=== PATIENT | male | born 1940 | race African-American/Black ===

== ENCOUNTER 2017-04-09 17:54 | Inpatient (IN) | payer OTHER ==
[~2017-04-09] VITALS: Ht 167.6 cm; Wt 92.0 kg
[~2017-04-09 17:54] MED LIST: ASPI-664 PO; ASPI325T32 PO; METO25TA4 PO; OXYC-183 PO; SIMV40TA3 PO; VALS160T20 PO; glipizide; qpap
[2017-04-09] MEDS ORDERED: ASPIRIN 325 MG TAB PO STA (18:28)
[2017-04-09 18:58] VITALS: TEMP 98.1
--- NOTE | 2017-04-09 19:03 | RADRPT ---
PROCEDURE: XR Chest. CLINICAL INDICATION: Chest Pain. TECHNIQUE: Single frontal view of the chest was obtained COMPARISON: Chest radiograph dated February 14, 2009. FINDINGS: Median sternotomy wires are present. The heart is within the upper limits of normal in size. Aortic calcifications are present. The lungs are clear with no focal consolidations, pleural effusions, or pneumothorax. Degenerative changes of the spine and shoulder joints are present. IMPRESSION: 1. No acute cardiopulmonary disease. RPTAT:AAJJ Physician Graeme Date Time Electronically viewed and signed by Nan Brush Physician on 04/09/2017 19:03 QL/
[2017-04-09] MEDS ORDERED: GABA100C14 PO (19:24)
[2017-04-09] MEDS ORDERED: GLIM4TAB PO (19:25)
[2017-04-09] MEDS ORDERED: LOSA50TA6 PO (19:25)
[2017-04-09] MEDS ORDERED: MELO-216 PO (19:25)
[2017-04-09] MEDS ORDERED: METO-335 PO (19:26)
[2017-04-09] MEDS ORDERED: INSU300I SQ (19:27)
[2017-04-09] MEDS ORDERED: LINA5TAB PO (19:27)
[2017-04-09] MEDS ORDERED: ALBUTEROL 0.083% (NEB) 2.5 MG/3 ML AMP NEB STA (19:48)
[2017-04-09] MEDS ORDERED: IPRATROPIUM (NEB) 0.5 MG/2.5 ML AMP NEB STA (19:48)
--- NOTE | 2017-04-09 20:13 | ERD ---
ER Documentation Chief Complaint Chief Complaint SHORTNESS OF BREATH, NO COUGH, HX OF CABG, NO CP HPI This is a 76-year-old male with a history of hypertension, CAD, previous CABG, hyperlipidemia, previous pulmonary embolism and diabetes who presents to the ER for evaluation of shortness of breath and chest pain. He states that his pain short of breath over the past 2 months however he recently started to have chest pain which is intermittent and substernal with no radiation. He denies any relieving factors for his pain and does state that the exertion and laying flat exacerbates his pain. The patient came to the emergency room today for evaluation of his symptoms ROS All systems reviewed and are negative except as per history of present illness. Medications Home Meds Reported Medications Insulin Glargine,Hum.rec.anlog ([place]) 300 Unit/1 Ml Insuln.pen, 20 UNIT SQ DAILY 04/09/17 Linagliptin (TRADJENTA) 5 Mg Tablet, 5 MG PO DAILY, TAB 04/09/17 Metoprolol Succinate* (Toprol XL*) 25 Mg Tab.sr.24h, 25 MG PO DAILY, #30 TAB 04/09/17 Meloxicam* (Meloxicam*) 7.5 Mg Tablet, 7.5 MG PO DAILY, #30 TAB 04/09/17 Glimepiride* (Glimepiride*) 4 Mg Tablet, 4 MG PO WITH BREAKFAST, TAB 04/09/17 Losartan Potassium* (Losartan Potassium*) 50 Mg Tablet, 50 MG PO DAILY, TAB 04/09/17 Gabapentin* (Gabapentin*) 100 Mg Capsule, 100 MG PO BID, #90 CAP 04/09/17 Aspirin* (Aspirin* EC) 81 Mg Tablet.dr, 81 MG PO DAILY 06/30/11 Discontinued Reported Medications Metoprolol Tartrate* (Lopressor*) 25 Mg Tablet, 12.5 MG PO Q12 08/06/11 Aspirin* (Aspirin* EC) 325 Mg Tablet.dr, 325 MG PO DAILY 08/06/11 Simvastatin (Simvastatin) 40 Mg Tablet, 40 MG PO HS 08/06/11 Oxycodone Hcl-Acetaminophen* (Oxycodone Hcl-Acetaminophen*) 1 Tab Tablet, 1 TAB PO Q6 Y 08/06/11 [glipizide] No Conflict Check, 5 MG DAILY 06/30/11 [qpap] No Conflict Check, 500 MG TID 06/30/11 Valsartan* (Diovan*) 160 Mg Tablet, 160 MG PO DAILY 06/30/11 Allergies Allergies: Coded Allergies: No Known Allergy (Verified , 08/04/11) PMhx/Soc History of Surgery: Yes Anesthesia Reaction: No Hx Neurological Disorder: No Hx Respiratory Disorders: No Hx Cardiac Disorders: Yes (ND X3,STENT 2009,HTN) Hx Psychiatric Problems: No Hx Alcohol Use: Yes Hx Substance Use: No Hx Tobacco Use: Yes Smoking Status: Former smoker Physical Exam Vitals Vital Signs Date Time Temp Pulse Resp B/P Pulse Ox O2 Delivery O2 Flow Rate FiO2 04/09/17 20:03 58 18 100 Nasal Cannula 2.0 04/09/17 20:02 100 2.0 27 04/09/17 18:59 Nasal Cannula 2 04/09/17 18:05 98.1 71 18 112/65 96 Physical Exam INITIAL VITAL SIGNS: Reviewed by me GENERAL: The patient is well developed and appropriate for usual state of health in no apparent distress HEENT: Pupils equal, round, and reactive to light. EOMI. There is no scleral icterus. NECK: C-spine is soft and supple, there is no meningismus. There is no cervical lymphadenopathy. LUNGS: Clear to auscultation bilaterally. There are no rales, wheezes or rhonchi. HEART: Regular rate and rhythm, no murmurs, clicks, rubs or gallops. ABDOMEN: Soft, non-tender, non-distended. There are bowel sounds in all four quadrants. No rebound or guarding. EXTREMITIES: There is no peripheral cyanosis or edema. No focal swelling or erythema. NEUROLOGICAL: The patient moves all four extremities with 5/5 strength. Cranial nerves II - XII are intact. Normal gait. Alert and oriented SKIN: There is no apparent rash or petechiae. HEME/LYMPHATIC: There is no evidence of excessive bruising or lymphedema. PSYCHIATRIC: The patient does not appear anxious or depressed. Result Diagram: 04/09/17184404/09/175 Results 24 hrs Laboratory Tests Test 04/09/17 18:45 White Blood Count 6.110^3/ul Red Blood Count 4.2410^6/ul Hemoglobin 13.2g/dl Hematocrit 37.9% Mean Corpuscular Volume 89.4fl Mean Corpuscular Hemoglobin 31.1pg Mean Corpuscular Hemoglobin Concent 34.8g/dl Red Cell Distribution Width 13.8% Platelet Count 00388^3/UL Mean Platelet Volume 10.0fl Neutrophils % 63.5% Lymphocytes % 25.8% Monocytes % 7.8% Eosinophils % 2.0% Basophils % 0.7% Nucleated Red Blood Cells % 0.0/100WBC Neutrophils # 3.910^3/ul Lymphocytes # 1.610^3/ul Monocytes # 0.510^3/ul Eosinophils # 0.110^3/ul Basophils # 0.010^3/ul Nucleated Red Blood Cells # 0.010^3/ul Prothrombin Time 14.0Sec Prothrombin Time Ratio 1.1 INR International Normalized Ratio 1.08 Activated Partial Thromboplast Time 47.0Sec Sodium Level 146mmol/L Potassium Level 4.1mmol/L Chloride Level 109mmol/L Carbon Dioxide Level 24mmol/L Anion Gap 17 Blood Urea Nitrogen 26mg/dl Creatinine 1.37mg/dl Glucose Level 162mg/dl Calcium Level 9.5mg/dl Troponin I < 0.012ng/ml B-Type Natriuretic Peptide 398PG/ML Current Medications Medications (Trade) Dose Ordered Sig/Armin Route PRN Reason Start Time Stop Time Status Last Admin Dose Admin Aspirin (Aspirin) 325 mg ONCE STAT PO 04/09/17 18:28 04/09/17 18:29 DC 04/09/17 18:44 Albuterol (Proventil 0.083% (Neb)) 5 mg ONCE STAT NEB 04/09/17 19:48 04/09/17 19:49 DC 04/09/17 20:03 Ipratropium [place] (Atrovent 0.02% (Neb)) 0.5 mg ONCE STAT NEB 04/09/17 19:48 04/09/17 19:49 DC 04/09/17 20:03 Ondansetron HCl (Zofran Inj) 4 mg ER BRIDGE PRN IV NAUSEA AND/OR VOMITING 04/09/17 20:30 04/10/17 20:29 Acetaminophen (Tylenol Tab) 650 mg ER BRIDGE PRN PO MILD PAIN/FEVER 04/09/17 20:30 04/10/17 20:29 Procedures/MDM EKG: Rate/Rhythm: [Normal Sinus Rhythm] QRS, ST, T-waves: [No changes consistent w/ acute ischemia] Impression: [No evidence of ischemia or arrhythmia] EKG: Rate/Rhythm: [Normal Sinus Rhythm] QRS, ST, T-waves: [No changes consistent w/ acute ischemia] Impression: [No evidence of ischemia or arrhythmia] Chest X-ray 1V Interpreted by me: Soft Tissue: No acute abnormalities Bones: No acute abnormalities Mediastinum/Cardiac Silhouette/Lungs: [No acute abnormalities] This is a 76-year-old male who presents to the ER for evaluation of chest pain and shortness of breath. This patient has multiple risk factors including previous MIs, and CABG. His first troponin is negative, his first EKG is nonischemic and repeat EKG does not show any evolving changes. This patient will be placed in for admission at this time under the care of [place] physician Dr. Posadas. He is hemodynamically stable at this point however will be placed on the telemetry floor. Smoking Cessation Therapy: Pt. was lectured for greater than 3 minutes on the health risks of continued smoking and the benefits of cessation. Departure Diagnosis: Primary Impression: Chest pain Additional Impressions: Shortness of breath Renal insufficiency Condition: Fair JEOVANY REYES DO Apr 09, 2017 20:13
[2017-04-09] MEDS ORDERED: NACL 0.9% 3 ML SYG IV SCH (20:30)
[2017-04-09] MEDS ORDERED: DOCUSATE SODIUM 100 MG CAP PO PRN (20:30)
[2017-04-09] MEDS ORDERED: ACETAMINOPHEN 325 MG TAB PO PRN ×2 (20:30)
[2017-04-09] MEDS ORDERED: ZOLPIDEM 5 MG TAB PO PRN (20:30)
[2017-04-09] MEDS ORDERED: MAGNESIUM HYDROXIDE 30ML CUP PO PRN (20:30)
[2017-04-09] MEDS ORDERED: NITROGLYCERIN (SL) 0.4 MG TAB SL PRN (20:30)
[2017-04-09] MEDS ORDERED: ONDANSETRON 4 MG INJ IV PRN ×2 (20:30)
[2017-04-09] MEDS ORDERED: morphine 2 MG INJ IV PRN (20:30)
[2017-04-09] MEDS ORDERED: BISACODYL 10 MG SUPP PR PRN (20:30)
[2017-04-09] MEDS ORDERED: GLUCAGON 1 MG INJ IM PRN (21:00)
[2017-04-09] MEDS ORDERED: SOD CHLORIDE 0.9% 1,000 ML IV SCH (21:00)
[2017-04-09] MEDS: INSULIN ASPART [NOVOLOG] 3 ML PEN SC SCH (21:00)
[2017-04-09] MEDS ORDERED: GLUCOSE GEL 15 GRAM TUBE PO PRN ×2 (21:00)
[2017-04-09] MEDS ORDERED: DEXTROSE 50% 50 ML SYRINGE IV PRN ×2 (21:00)
[2017-04-09] MEDS ORDERED: GLUCOSE GEL 15 GRAM TUBE BUCCAL PRN (21:00)
[2017-04-09] MEDS ORDERED: SOD CHLORIDE 0.9% 100 ML ONE (21:27)
[2017-04-09] MEDS ORDERED: IODIXANOL LOCM 50 ML BTL ONE (21:27)
[2017-04-09] MEDS ORDERED: IODIXANOL LOCM 100 ML BTL ONE (21:27)
[2017-04-09] MEDS ORDERED: PYRI50CA PO (21:52)
--- NOTE | 2017-04-09 22:47 | RADRPT ---
PROCEDURE: CT angiogram of the chest with contrast. CLINICAL INDICATION: Chest pain. TECHNIQUE: CT angiogram of the chest was obtained using a multi-detector high-resolution CT. Con tiguous axial images were obtained during the dynamic injection of 100 cc of Visipaque 320 intraveno us contrast. Coronal and sagittal reformatted images were obtained. 3-D reformatted images were al so obtained. Images were reviewed on a PACS workstation. One or more of the following dose reduction techniques were used: - Automated exposure control. - Adjustment of the mA and/or kV according to patient size. - Use of iterative reconstruction technique. Exam CTD/vol = 17.68 mGy. Total exam DLP = 659.47 mGy-cm. COMPARISON: None. FINDINGS: The main pulmonary artery followed to the segmental divisions are well opacified. There is no filli ng defect or evidence of pulmonary embolism. The heart is normal in size with coronary artery calci fications. There is no pericardial thickening or effusion. The aorta is of normal course and calib er with scattered atherosclerotic calcifications. There is no evidence of aortic aneurysm or dissect ion. Mediasternotomy wires are present. The visualized thyroid is unremarkable. There are no enlarged a xillary lymph nodes. There are no enlarged mediastinal or hilar lymph nodes by CT criteria. There is a subpleural density within the left lower lobe (image 59) measuring 15 x 10 mm. There is no pleu ral effusion. There is mild bibasilar atelectasis. The central tracheobronchial tree is within norm al limits. Limited evaluation of the upper abdomen is unremarkable. IMPRESSION: No evidence of pulmonary embolism or aortic dissection. Vascular calcifications reflective of atherosclerosis. Left lower lobe 15 x 10 mm subpleural density could be infectious/inflammatory; however, follow-up b y Fleischner guidelines is recommended. Mild bibasilar atelectasis. .Noman Wilson MD, MD Date Time Electronically viewed and signed by .Noman Wilson MD, MD on 04/09/2017 22:47 .T/
[2017-04-09 23:48] VITALS: Ht 167.6 cm; Wt 92.0 kg
[2017-04-10] VITALS (7 sets, daily range): BP systolic 112–119; BP diastolic 57–72; PULSE 47–54; RESP 16–17
[2017-04-10] MEDS: FAMOTIDINE 20 MG TAB PO SCH ×2 (00:25→08:45)
[2017-04-10] MEDS: GABAPENTIN 100 MG CAP PO SCH ×2 (00:25→08:46)
[2017-04-10] MEDS ORDERED: ACCU-CHEK XX SCH (02:00)
[2017-04-10] MEDS ORDERED: INSULIN GLARGINE [LANtus] 3 ML PEN SC SCH (08:00)
[2017-04-10] MEDS: INSULIN ASPART [NOVOLOG] 3 ML PEN SC SCH ×2 (08:47→12:49)
[2017-04-10] MEDS ORDERED: METOPROLOL (XL) 25 MG TAB PO SCH (09:00)
[2017-04-10] MEDS ORDERED: LINAGLIPTIN 5 MG TABLET PO SCH (09:00)
[2017-04-10] MEDS ORDERED: ASPIRIN 81 MG TAB PO SCH (09:00)
[2017-04-10] MEDS ORDERED: LOSARTAN 50 MG TAB PO SCH (09:00)
[2017-04-10] MEDS ORDERED: ENOXAPARIN 40 MG/0.4 ML SYG SC SCH (10:18)
--- NOTE | 2017-04-10 10:29 | HP ---
Date/Time of Note Date/Time of Note DATE: 04/10/17 TIME: 10:00 Assessment/Plan VTE Prophylaxis VTE Prophylaxis Intervention: LMWH Lines/Catheters IV Catheter Type (from Nrs): Saline Lock Assessment/Plan Assessment/Plan 76-year-old male with: 1. Dyspnea, chest discomfort left-sided, saturation wnl and in the upper 90s on room air, symptoms not related to exertion but describing orthopnea. 2D echocardiogram was ordered here and done this morning, will follow up on reading. Patient reports that he did have a nuclear stress test at his electronic parts salesperson's office in February 2017, will get records. Cardiac enzymes negative 3, EKG and telemetry reading within normal. CTA chest with no pulmonary embolus or dissection. Follow-up on fasting lipid panel. No further symptoms currently. We will discuss with cardiology, for now no further workup ordered. 2. Diabetes mellitus: A1c of 8.5, continue current medications. Diabetic diet. 4. Diabetic neuropathy: Continue gabapentin. 3. Hypertension: Continue current medication, given heart rates in the upper 40s at night, will discuss re-dosing of beta-blockers, for today Toprol-XL has been held. 5. Reported urinary incontinence since prostate surgery, patient is self treating with medical, edible marijuana per his report Prophylaxis: Pepcid for GI prophylaxis, Lovenox for DVT prophylaxis Disposition: Follow-up cardiology recommendations, hopefully discharge planning today if no further studies or procedures. HPI/ROS Admit Date/Time Admit Date/Time Apr 09, 2017 at 20:08 Hx of Present Illness Chief complaint: Shortness of breath, chest discomfort History of presenting illness: This is a 76-year-old male with history of coronary artery disease, status post coronary artery bypass surgery in 2011, diabetes mellitus, hyperlipidemia, diabetic neuropathy, hypertension who is followed as an outpatient by Dr. Vasquez for cardiology, presented at [facility] with complaints of shortness of breath and left-sided chest pressure. Patient reports that he was at [facility] last week with similar complaints, he was worked up in the emergency department apparently and the discharge the next day. He saw his electronic parts salesperson Dr. Vasquez in the office yesterday as a follow-up, he reports that he was given a medication that may be Lasix as they were concerned for pulmonary edema. Patient already had a stress test and also an echocardiogram apparently this past February Dr. Vasquez's office, he was not told that there was any acute findings. He is a former tobacco user, heavy smoker, he quit in 2011. He denies any nausea, vomiting, diaphoresis. He denies any fevers, cough, chills. He denies any lower extremity edema. He reports that the dyspneic episodes seem to happen randomly, he has had episodes with exertion, with rest, while sleeping. He describes symptoms similar to orthopnea. This has been going on for the past 5 months but increasing in frequency lately. He is left-sided chest pressure seems to be also ranging from a left upper quadrant all the way to left upper chest. We will get records from Dr. Vasquez' s office and have the patient seen by Dr. Sainz. Patient is also noted to have some bradycardic episodes at night, sinus bradycardia, mostly asymptomatic , lowest HR was the 40s. ROS Constitutional: improved Eyes: no complaints ENT: no complaints Respiratory: no complaints, shortness of breath Cardiovascular: chest pain Gastrointestinal: no complaints Genitourinary: no complaints Musculoskeletal: no complaints Skin: no complaints Neurologic: no complaints Endocrine: no complaints Lymphatic: no complaints Psychological: no complaints PMH/Family/Social Past Medical History Hypertension Hyperlipidemia Coronary artery disease, severe, status post CABG 2011 Status post prostate surgery with occasional urinary incontinence Rheumatoid arthritis Former tobacco use Diabetes mellitus Past Surgical History Status post coronary artery bypass surgery 2011 Status post right knee surgery 2011 Status post left knee surgery 2013 Status post prostate surgery 2000 Family History Significant Family History: other (Rheumatoid arthritis) Social History Alcohol Use: rarely Smoking Status: Former smoker (Up to 5 packs a day, quit in 2011, smoked for at least 40 years) Drug Use: marijuana (Daily edible marijuana user) Exam/Review of Systems Vital Signs Vitals Vital Signs Date Time Temp Pulse Resp B/P Pulse Ox O2 Delivery O2 Flow Rate FiO2 04/10/17 07:57 97.9 53 17 117/64 99 04/09/17 22:15 Nasal Cannula 2.0 04/09/17 20:02 27 Intake and Output 04/09/17 04/09/17 04/10/17 15:00 23:00 07:00 Intake Total 20 ml Balance 20 ml Exam Constitutional: alert, oriented, other (obese), well developed Respiratory: clear to auscultation, normal air movement Cardiovascular: nl pulses, regular rate and rhythm Gastrointestinal: non-tender, soft Musculoskeletal: nl extremities to inspection, nl gait and stance Extremities: normal pulses, other (No edema, clubbing or cyanosis) Neurological: VAMP STRAP IRONER II-XII intact, nl mental status, nl speech, nl strength Labs Result Diagram: 04/09/17 1845 04/10/17 0705 Medications Medications Current Medications Diagnostic Test (Pha) (Accu-Chek) 1 ea 02 XX ; Start 04/10/17 at 02:00 Insulin Glargine (Lantus) 19 unit DAILY@08 SC Last administered on 04/10/17 09 :01; Admin Dose 19 UNIT; Start 04/10/17 at 08:00 Ondansetron HCl (Zofran Inj) 4 mg Q6H PRN IV NAUSEA AND/OR VOMITING; Start at 20:30 Aspirin (Aspirin) 81 mg DAILY PO Last administered on 04/10/17 08:45; Admin Dose 81 MG; Start 04/10/17 at 09:00 Nitroglycerin (Nitroglycerin (Sl Tab) 0.4 Mg) 1 tab Q5M PRN SL CHEST PAIN; Start 04/09/17 at 20:30 Acetaminophen (Tylenol Tab) 650 mg Q6H PRN PO PAIN LEVEL 1-3 OR FEVER; Start 04/09/17 at 20:30 Morphine Sulfate (morphine) 2 mg Q4H PRN IV PAIN LEVEL 7-10; Start 04/09/17 at 20:30 Zolpidem Tartrate (Ambien) 5 mg QHS PRN PO INSOMNIA; Start 04/09/17 at 20:30 Docusate Sodium (Colace) 100 mg Q12H PRN PO CONSTIPATION; Start 04/09/17 at 20 :30 Magnesium Hydroxide (Milk Of Mag) 30 ml DAILY PRN PO CONSTIPATION; Start 04/09 at 20:30 Bisacodyl (Dulcolax Supp) 10 mg DAILY PRN VT CONSTIPATION; Start 04/09/17 at 20:30 Famotidine (Pepcid) 20 mg Q12 PO Last administered on 04/10/17 08:45; Admin Dose 20 MG; Start 04/09/17 at 21:00 Miscellaneous Information 1 ea NOTE XX ; Start 04/09/17 at 21:00 Glucose (Glutose) 15 gm Q15M PRN PO DECREASED GLUCOSE; Start 04/09/17 at 21:00 Glucose (Glutose) 22.5 gm Q15M PRN PO DECREASED GLUCOSE; Start 04/09/17 at 21: 00 Dextrose (D50w Syringe) 25 ml Q15M PRN IV DECREASED GLUCOSE; Start 04/09/17 at 21:00 Dextrose (D50w Syringe) 50 ml Q15M PRN IV DECREASED GLUCOSE; Start 04/09/17 at 21:00 Glucagon (Glucagen) 1 mg Q15M PRN IM DECREASED GLUCOSE; Start 04/09/17 at 21: 00 Glucose (Glutose) 15 gm Q15M PRN BUCCAL DECREASED GLUCOSE; Start 04/09/17 at 21:00 Gabapentin (Neurontin) 100 mg BID PO Last administered on 04/10/17 08:46; Admin Dose 100 MG; Start 04/09/17 at 21:00 Linagliptin (Tradjenta) 5 mg DAILY PO Last administered on 04/10/17 08:45; Admin Dose 5 MG; Start 04/10/17 at 09:00 Losartan Potassium (Cozaar) 50 mg DAILY PO Last administered on 04/10/17 08:45 ; Admin Dose 50 MG; Start 04/10/17 at 09:00 Metoprolol Succinate (Toprol Xl) 25 mg DAILY PO ; Start 04/10/17 at 09:00 Procedures Procedures PROCEDURE: CT angiogram of the chest with contrast. CLINICAL INDICATION: Chest pain. TECHNIQUE: CT angiogram of the chest was obtained using a multi-detector high -resolution CT. Contiguous axial images were obtained during the dynamic injection of 100 cc of Visipaque 320 intravenous contrast. Coronal and sagittal reformatted images were obtained. 3-D reformatted images were also obtained. Images were reviewed on a PACS workstation. One or more of the following dose reduction techniques were used: - Automated exposure control. - Adjustment of the mA and/or kV according to patient size. - Use of iterative reconstruction technique. Exam CTD/vol = 17.68 mGy. Total exam DLP = 659.47 mGy-cm. COMPARISON: None. FINDINGS: The main pulmonary artery followed to the segmental divisions are well opacified. There is no filling defect or evidence of pulmonary embolism. The heart is normal in size with coronary artery calcifications. There is no pericardial thickening or effusion. The aorta is of normal course and caliber with scattered atherosclerotic calcifications. There is no evidence of aortic aneurysm or dissection. Mediasternotomy wires are present. The visualized thyroid is unremarkable. There are no enlarged axillary lymph nodes. There are no enlarged mediastinal or hilar lymph nodes by CT criteria. There is a subpleural density within the left lower lobe (image 59) measuring 15 x 10 mm. There is no pleural effusion. There is mild bibasilar atelectasis. The central tracheobronchial tree is within normal limits. Limited evaluation of the upper abdomen is unremarkable. IMPRESSION: No evidence of pulmonary embolism or aortic dissection. Vascular calcifications reflective of atherosclerosis. Left lower lobe 15 x 10 mm subpleural density could be infectious/inflammatory; however, follow-up by Fleischner guidelines is recommended. Mild bibasilar atelectasis. .Noman Wilson MD, MD Date Time Electronically viewed and signed by .Noman Wilson MD, on 04/09/2017 22:47 PROCEDURE: XR Chest. CLINICAL INDICATION: Chest Pain. TECHNIQUE: Single frontal view of the chest was obtained COMPARISON: Chest radiograph dated February 14, 2009. FINDINGS: Median sternotomy wires are present. The heart is within the upper limits of normal in size. Aortic calcifications are present. The lungs are clear with no focal consolidations, pleural effusions, or pneumothorax. Degenerative changes of the spine and shoulder joints are present. IMPRESSION: 1. No acute cardiopulmonary disease. RPTAT:AAJJ Physician Graeme Date Time Electronically viewed and signed by Physician Graeme on 04/09/2017 19:03 QL/ CC: JEOVANY REYES DO EKG: Normal sinus rhythm, heart rate in the 60s, no acute or chronic ischemic changes. Telemetry overnight, remained sinus rhythm with lowest heart rate 48 BEBETO MTZ Apr 10, 2017 10:17
--- NOTE | 2017-04-10 11:03 | PDOCDIS ---
Discharge Instructions CONDITION Patient Condition: Stable HOME CARE INSTRUCTIONS: Diet Instructions: Low Fat /CholesterolSpecial Diet: ADA diet ACTIVITY: Activity Restrictions: Slowly Increase Activity FOLLOW UP/APPOINTMENTS Follow-up Plan Follow-up with primary care physician within 1 week Follow-up with outpatient sleeve presser operator within 2 weeks Refer to pulmonary as an outpatient for episodes of dyspnea that may be related to bronchospasm and COPD versus also possible obstructive sleep apnea patient may need sleep study. BEBETO MTZ Apr 10, 2017 11:03
--- NOTE | 2017-04-10 11:03 | PDOCDIS ---
Discharge Instructions CONDITION Patient Condition: Stable HOME CARE INSTRUCTIONS: Diet Instructions: Low Fat /CholesterolSpecial Diet: ADA diet ACTIVITY: Activity Restrictions: Slowly Increase Activity FOLLOW UP/APPOINTMENTS Follow-up Plan Follow-up with primary care physician within 1 week Follow-up with outpatient benefits analyst within 2 weeks Refer to pulmonary as an outpatient for episodes of dyspnea that may be related to bronchospasm and COPD versus also possible obstructive sleep apnea patient may need sleep study. BEBETO MTZ Apr 10, 2017 11:03
--- NOTE | 2017-04-10 11:03 | PDOCDIS ---
Discharge Instructions CONDITION Patient Condition: Stable HOME CARE INSTRUCTIONS: Diet Instructions: Low Fat /CholesterolSpecial Diet: ADA diet ACTIVITY: Activity Restrictions: Slowly Increase Activity FOLLOW UP/APPOINTMENTS Follow-up Plan Follow-up with primary care physician within 1 week Follow-up with outpatient stapler coil unit within 2 weeks Refer to pulmonary as an outpatient for episodes of dyspnea that may be related to bronchospasm and COPD versus also possible obstructive sleep apnea patient may need sleep study. BEBETO MTZ Apr 10, 2017 11:03
[2017-04-10] MEDS ORDERED: ADV25050 INH (11:05)
[2017-04-10] MEDS ORDERED: TIOT18CA INH (11:05)
[2017-04-10] MEDS ORDERED: METO-335 PO (11:05)
--- NOTE | 2017-04-10 11:24 | CONS ---
Date/Time of Note Date/Time of Note DATE: 04/10/17 TIME: 11:19 Assessment/Plan Assessment/Plan Additional Assessment/Plan Shortness of breath CAD with history of CABG Abdominal and chest wall pain Preserved ejection fraction Hypertension History of extensive tobacco use Active marijuana use -Serial cardiac enzymes have remained negative, ECG with no significant ischemic abnormalities. Our patient complaint of "chest discomfort" his abdominal wall discomfort which is improved with palpation. Recent echocardiogram in the outpatient setting February 2017 with preserved ejection fraction, nuclear cardiac perfusion study performed in January 2017 with no evidence of ischemia. His current symptoms are very different to when he had his myocardial infarction in 2011. Symptoms do not appear secondary to cardiac ischemia at the current time. Consultation Date/Type/Reason Admit Date/Time Apr 09, 2017 at 20:08 Type of Consultation: cv Reason for Consultation Shortness of breath and chest pain Hx of Present Illness This is a 76-year-old male with past medical history of coronary artery disease status post CABG in 2011, significant tobacco history, hypertension who presents with symptoms of shortness of breath. Symptoms are more apparent with walking but at times happen randomly at rest. Symptoms also have been at times in the middle the night. He does also complain of a "chest discomfort" but he points to his abdomen. This discomfort is usually better with palpation and rubbing his abdomen. He denies chest discomfort with ambulation. He does complain of cough and sneezing but denies productive cough. He denies fevers or chills. Denies dizziness or lightheadedness with activity. He is currently feeling better since admission. Eyes: no complaints ENT: no complaints Respiratory: no complaints, shortness of breath Cardiovascular: chest pain Gastrointestinal: no complaints Genitourinary: no complaints Musculoskeletal: no complaints Skin: no complaints Neurologic: no complaints Lymphatic: no complaints Psychological: no complaints Past Medical History Medical History: coronary artery disease, hypertension Past Surgical History Past Surgical Hx: coronary bypass surgery Family History Significant Family History: no pertinent family hx Social History Alcohol Use: rarely Smoking Status: Former smoker (Up to 5 packs a day, quit in 2011, smoked for at least 40 years) Drug Use: marijuana (Daily edible marijuana user) Exam/Review of Systems Vital Signs Vitals Vital Signs Date Time Temp Pulse Resp B/P Pulse Ox O2 Delivery O2 Flow Rate FiO2 04/10/17 08:00 49 04/10/17 07:57 97.9 17 117/64 99 04/09/17 22:15 Nasal Cannula 2.0 04/09/17 20:02 27 Intake and Output 04/09/17 04/09/17 04/10/17 15:00 23:00 07:00 Intake Total 20 ml Balance 20 ml Exam No apparent distress, no dyspnea with speaking or ambulation in the room Constitutional: alert, oriented Head: normocephalic Respiratory: other (Coarse breath sounds bilaterally, no wheezing) Cardiovascular: other (S1-S2 heard), regular rate and rhythm Gastrointestinal: bowel sounds, non-tender, soft Extremities: other (No edema) Results Result Diagram: 04/09/17 1845 04/10/17 0705 Results 24 hrs Laboratory Tests Test 04/09/17 18:45 04/10/17 00:24 04/10/17 00:41 04/10/17 07:05 White Blood Count 6.1 # Red Blood Count 4.24 L Hemoglobin 13.2 L Hematocrit 37.9 L Mean Corpuscular Volume 89.4 Mean Corpuscular Hemoglobin 31.1 Mean Corpuscular Hemoglobin Concent 34.8 Red Cell Distribution Width 13.8 Platelet Count 161 Mean Platelet Volume 10.0 # Neutrophils % 63.5 Lymphocytes % 25.8 Monocytes % 7.8 Eosinophils % 2.0 Basophils % 0.7 Nucleated Red Blood Cells % 0.0 Neutrophils # 3.9 Lymphocytes # 1.6 Monocytes # 0.5 Eosinophils # 0.1 Basophils # 0.0 Nucleated Red Blood Cells # 0.0 Prothrombin Time 14.0 Prothrombin Time Ratio 1.1 INR International Normalized Ratio 1.08 Activated Partial Thromboplast Time 47.0 H Sodium Level 146 H 146 H Potassium Level 4.1 4.2 Chloride Level 109 113 H Carbon Dioxide Level 24 22 Anion Gap 17 H 15 Blood Urea Nitrogen 26 H 23 H Creatinine 1.37 H 1.14 Glucose Level 162 141 Calcium Level 9.5 9.3 Troponin I < 0.012 < 0.012 < 0.012 B-Type Natriuretic Peptide 398 H Bedside Glucose 119 Creatine Kinase 299 H 267 H Creatine Kinase Index 0.5 0.5 Creatinine Kinase MB (Mass) 1.61 1.36 Hemoglobin A1c 8.1 H Magnesium Level 1.6 L Total Bilirubin 0.5 Direct Bilirubin 0.00 Indirect Bilirubin 0.5 Aspartate Amino Transf (AST/SGOT) 48 H Alanine Aminotransferase (ALT/SGPT) 66 Alkaline Phosphatase 69 Total Protein 6.9 Albumin 3.6 Globulin 3.30 H Albumin/Globulin Ratio 1.09 Triglycerides Level 115 Cholesterol Level 133 LDL Cholesterol, Calculated 70 HDL Cholesterol 40 Cholesterol/HDL Ratio 3.3 Thyroid Stimulating Hormone (TSH) 0.943 Free Thyroxine 0.92 Test 04/10/17 07:47 Bedside Glucose 184 Medications Medications Current Medications Diagnostic Test (Pha) (Accu-Chek) 1 ea 02 XX ; Start 04/10/17 at 02:00 Insulin Glargine (Lantus) 19 unit DAILY@08 SC Last administered on 04/10/17 09 :01; Admin Dose 19 UNIT; Start 04/10/17 at 08:00 Ondansetron HCl (Zofran Inj) 4 mg Q6H PRN IV NAUSEA AND/OR VOMITING; Start at 20:30 Aspirin (Aspirin) 81 mg DAILY PO Last administered on 04/10/17 08:45; Admin Dose 81 MG; Start 04/10/17 at 09:00 Nitroglycerin (Nitroglycerin (Sl Tab) 0.4 Mg) 1 tab Q5M PRN SL CHEST PAIN; Start 04/09/17 at 20:30 Acetaminophen (Tylenol Tab) 650 mg Q6H PRN PO PAIN LEVEL 1-3 OR FEVER; Start 04/09/17 at 20:30 Morphine Sulfate (morphine) 2 mg Q4H PRN IV PAIN LEVEL 7-10; Start 04/09/17 at 20:30 Zolpidem Tartrate (Ambien) 5 mg QHS PRN PO INSOMNIA; Start 04/09/17 at 20:30 Docusate Sodium (Colace) 100 mg Q12H PRN PO CONSTIPATION; Start 04/09/17 at 20 :30 Magnesium Hydroxide (Milk Of Mag) 30 ml DAILY PRN PO CONSTIPATION; Start 04/09 at 20:30 Bisacodyl (Dulcolax Supp) 10 mg DAILY PRN HI CONSTIPATION; Start 04/09/17 at 20:30 Famotidine (Pepcid) 20 mg Q12 PO Last administered on 04/10/17 08:45; Admin Dose 20 MG; Start 04/09/17 at 21:00 Miscellaneous Information 1 ea NOTE XX ; Start 04/09/17 at 21:00 Glucose (Glutose) 15 gm Q15M PRN PO DECREASED GLUCOSE; Start 04/09/17 at 21:00 Glucose (Glutose) 22.5 gm Q15M PRN PO DECREASED GLUCOSE; Start 04/09/17 at 21: 00 Dextrose (D50w Syringe) 25 ml Q15M PRN IV DECREASED GLUCOSE; Start 04/09/17 at 21:00 Dextrose (D50w Syringe) 50 ml Q15M PRN IV DECREASED GLUCOSE; Start 04/09/17 at 21:00 Glucagon (Glucagen) 1 mg Q15M PRN IM DECREASED GLUCOSE; Start 04/09/17 at 21: 00 Glucose (Glutose) 15 gm Q15M PRN BUCCAL DECREASED GLUCOSE; Start 04/09/17 at 21:00 Gabapentin (Neurontin) 100 mg BID PO Last administered on 04/10/17 08:46; Admin Dose 100 MG; Start 04/09/17 at 21:00 Linagliptin (Tradjenta) 5 mg DAILY PO Last administered on 04/10/17 08:45; Admin Dose 5 MG; Start 04/10/17 at 09:00 Losartan Potassium (Cozaar) 50 mg DAILY PO Last administered on 04/10/17 08:45 ; Admin Dose 50 MG; Start 04/10/17 at 09:00 Enoxaparin Sodium (Lovenox) 40 mg DAILY SC Last administered on 04/10/17 10:46 ; Admin Dose 40 MG; Start 04/10/17 at 10:18 Salmeterol Xinafoate/ Fluticasone (Advair 250/50 Diskus) 1 inh BID INH ; Start 04/10/17 at 21:00 Tiotropium [place] (Spiriva) 1 inh DAILY INH ; Start 04/10/17 at 12:00 Metoprolol Succinate (Toprol Xl) 12.5 mg DAILY PO ; Start 04/11/17 at 09:00 Procedures Procedures ECG with sinus rhythm at 60 bpm, QRS 90 ms, nonspecific ST abnormalities Wilber Sainz DO Apr 10, 2017 11:24
[2017-04-10] MEDS ORDERED: TIOTROPIUM 18 MCG CAPSULE INHA DEV INH SCH (12:00)
--- NOTE | 2017-04-10 13:33 | RADRPT ---
Echocardiogram Report Patient Name: MANI HOWARD Gender: Male Date: 1940 Study Date: 10-Apr-2017 [employer]: [facility] Location: [address] Ref. Physician: NAJMA MTZ Quality: Adequate Procedures: Transthoracic echocardiogram with complete 2D, M-Mode, and doppler examination. Indications: Chest Pain. Shortness of breath. 2D/M Mode Doppler Measurement Value Normal Ranges Measurement Value Normal Ranges LVIDd 2D 4.7 3.5 - 5.6 cm AV Peak Junior 1.5 m/sec LVIDs 2D 3.3 2.1 - 4.1 cm AV Peak PG 8.0 mmHg FS 2D 29.9 % LVOT Peak Junior 1.0 m/sec LVPWd 2D 0.9 0.6 - 1.1 cm LVOT Peak PG 4.0 mmHg IVSd 2D 1.1 0.6 - 1.1 cm MV E Peak Junior 0.7 m/sec IVS/LVPW 2D 1.2 MV A Peak Junior 0.8 m/sec AoR Diam 2D 2.9 2.0 - 3.7 cm MV E/A 0.9 LA/Ao 2D 1 0 - 1 MV Decel Time 169 msec EDV 2D 105.0 cm3 MV E/A 0.9 ESV 2D 36.3 cm3 TR Peak Junior 2.2 m/sec LA Dimen 2D 3.6 2.3 - 4.0 cm TR Peak PG 19.0 mmHg RVSP 22.0 mmHg Findings Left Ventricle: Normal left ventricular systolic function. Normal left ventricular cavity size. Mild concentric left ventricular hypertrophy. Ejection fraction is visually estimated at 60 %. Tissue Doppler/Mitral Doppler indices are consistent with impaired relaxation (Stage I diastolic dysfunction). Right Ventricle: Normal right ventricular size. Normal right ventricular systolic function. Left Atrium: The left atrium is normal in size. Right Atrium: The right atrium is normal in size. Mitral Valve: Mitral valve leaflets appear mildly thickened. Mild mitral annular calcification. Mild mitral valve regurgitation. Aortic Valve: No significant aortic stenosis or insufficiency. Aortic cusps appear moderately calcified. Tricuspid Valve: Normal appearance of the tricuspid valve. Estimated peak PA systolic pressure 22 mmHg. There is trace tricuspid regurgitation. Pulmonic Valve: Pulmonic valve not well visualized. Pericardium: Normal pericardium with no significant pericardial effusion. Aorta: Normal aortic root. IVC: Normal size and normal respiratory collapse consistent with normal right atrial pressure. Conclusions 1.Normal left ventricular systolic function. Normal left ventricular cavity size. Mild concentric left ventricular hypertrophy. Ejection fraction is visually estimated at 60 %. Tissue Doppler/Mitral Doppler indices are consistent with impaired relaxation (Stage I diastolic dysfunction). 2.Normal right ventricular size. Normal right ventricular systolic function. 3.The left atrium is normal in size. 4.The right atrium is normal in size. 5.Mild mitral valve regurgitation. 6.No significant valvular stenosis or regurgitation seen of remaining visualized valves. 7.Normal pericardium with no significant pericardial effusion. Electronically Signed By: Wilber Sainz 10-Apr-2017 13:33:20 -0700 Patient Name: MANI HOWARD Study Date: 10-Apr-2017 [id number]
--- NOTE | 2017-04-10 13:33 | RADRPT ---
Echocardiogram Report Patient Name: MANI HOWARD Gender: Male Date: 1940 Study Date: 10-Apr-2017 [employer]: [facility] Location: [address] Ref. Physician: NAJMA MTZ Quality: Adequate Procedures: Transthoracic echocardiogram with complete 2D, M-Mode, and doppler examination. Indications: Chest Pain. Shortness of breath. 2D/M Mode Doppler Measurement Value Normal Ranges Measurement Value Normal Ranges LVIDd 2D 4.7 3.5 - 5.6 cm AV Peak Junior 1.5 m/sec LVIDs 2D 3.3 2.1 - 4.1 cm AV Peak PG 8.0 mmHg FS 2D 29.9 % LVOT Peak Junior 1.0 m/sec LVPWd 2D 0.9 0.6 - 1.1 cm LVOT Peak PG 4.0 mmHg IVSd 2D 1.1 0.6 - 1.1 cm MV E Peak Junior 0.7 m/sec IVS/LVPW 2D 1.2 MV A Peak Junior 0.8 m/sec AoR Diam 2D 2.9 2.0 - 3.7 cm MV E/A 0.9 LA/Ao 2D 1 0 - 1 MV Decel Time 169 msec EDV 2D 105.0 cm3 MV E/A 0.9 ESV 2D 36.3 cm3 TR Peak Junior 2.2 m/sec LA Dimen 2D 3.6 2.3 - 4.0 cm TR Peak PG 19.0 mmHg RVSP 22.0 mmHg Findings Left Ventricle: Normal left ventricular systolic function. Normal left ventricular cavity size. Mild concentric left ventricular hypertrophy. Ejection fraction is visually estimated at 60 %. Tissue Doppler/Mitral Doppler indices are consistent with impaired relaxation (Stage I diastolic dysfunction). Right Ventricle: Normal right ventricular size. Normal right ventricular systolic function. Left Atrium: The left atrium is normal in size. Right Atrium: The right atrium is normal in size. Mitral Valve: Mitral valve leaflets appear mildly thickened. Mild mitral annular calcification. Mild mitral valve regurgitation. Aortic Valve: No significant aortic stenosis or insufficiency. Aortic cusps appear moderately calcified. Tricuspid Valve: Normal appearance of the tricuspid valve. Estimated peak PA systolic pressure 22 mmHg. There is trace tricuspid regurgitation. Pulmonic Valve: Pulmonic valve not well visualized. Pericardium: Normal pericardium with no significant pericardial effusion. Aorta: Normal aortic root. IVC: Normal size and normal respiratory collapse consistent with normal right atrial pressure. Conclusions 1.Normal left ventricular systolic function. Normal left ventricular cavity size. Mild concentric left ventricular hypertrophy. Ejection fraction is visually estimated at 60 %. Tissue Doppler/Mitral Doppler indices are consistent with impaired relaxation (Stage I diastolic dysfunction). 2.Normal right ventricular size. Normal right ventricular systolic function. 3.The left atrium is normal in size. 4.The right atrium is normal in size. 5.Mild mitral valve regurgitation. 6.No significant valvular stenosis or regurgitation seen of remaining visualized valves. 7.Normal pericardium with no significant pericardial effusion. Electronically Signed By: Wilber Sainz 10-Apr-2017 13:33:20 -0700 Patient Name: MANI HOWARD Study Date: 10-Apr-2017 [id number]
--- NOTE | 2017-04-10 13:33 | RADRPT ---
Echocardiogram Report Patient Name: MANI HOWARD Gender: Male Date: 1940 Study Date: 10-Apr-2017 [employer]: [facility] Location: [address] Ref. Physician: NAJMA MTZ Quality: Adequate Procedures: Transthoracic echocardiogram with complete 2D, M-Mode, and doppler examination. Indications: Chest Pain. Shortness of breath. 2D/M Mode Doppler Measurement Value Normal Ranges Measurement Value Normal Ranges LVIDd 2D 4.7 3.5 - 5.6 cm AV Peak Junior 1.5 m/sec LVIDs 2D 3.3 2.1 - 4.1 cm AV Peak PG 8.0 mmHg FS 2D 29.9 % LVOT Peak Junior 1.0 m/sec LVPWd 2D 0.9 0.6 - 1.1 cm LVOT Peak PG 4.0 mmHg IVSd 2D 1.1 0.6 - 1.1 cm MV E Peak Junior 0.7 m/sec IVS/LVPW 2D 1.2 MV A Peak Junior 0.8 m/sec AoR Diam 2D 2.9 2.0 - 3.7 cm MV E/A 0.9 LA/Ao 2D 1 0 - 1 MV Decel Time 169 msec EDV 2D 105.0 cm3 MV E/A 0.9 ESV 2D 36.3 cm3 TR Peak Junior 2.2 m/sec LA Dimen 2D 3.6 2.3 - 4.0 cm TR Peak PG 19.0 mmHg RVSP 22.0 mmHg Findings Left Ventricle: Normal left ventricular systolic function. Normal left ventricular cavity size. Mild concentric left ventricular hypertrophy. Ejection fraction is visually estimated at 60 %. Tissue Doppler/Mitral Doppler indices are consistent with impaired relaxation (Stage I diastolic dysfunction). Right Ventricle: Normal right ventricular size. Normal right ventricular systolic function. Left Atrium: The left atrium is normal in size. Right Atrium: The right atrium is normal in size. Mitral Valve: Mitral valve leaflets appear mildly thickened. Mild mitral annular calcification. Mild mitral valve regurgitation. Aortic Valve: No significant aortic stenosis or insufficiency. Aortic cusps appear moderately calcified. Tricuspid Valve: Normal appearance of the tricuspid valve. Estimated peak PA systolic pressure 22 mmHg. There is trace tricuspid regurgitation. Pulmonic Valve: Pulmonic valve not well visualized. Pericardium: Normal pericardium with no significant pericardial effusion. Aorta: Normal aortic root. IVC: Normal size and normal respiratory collapse consistent with normal right atrial pressure. Conclusions 1.Normal left ventricular systolic function. Normal left ventricular cavity size. Mild concentric left ventricular hypertrophy. Ejection fraction is visually estimated at 60 %. Tissue Doppler/Mitral Doppler indices are consistent with impaired relaxation (Stage I diastolic dysfunction). 2.Normal right ventricular size. Normal right ventricular systolic function. 3.The left atrium is normal in size. 4.The right atrium is normal in size. 5.Mild mitral valve regurgitation. 6.No significant valvular stenosis or regurgitation seen of remaining visualized valves. 7.Normal pericardium with no significant pericardial effusion. Electronically Signed By: Wilber Sainz 10-Apr-2017 13:33:20 -0700 Patient Name: MANI HOWARD Study Date: 10-Apr-2017 [id number]
[2017-04-10] MEDS ORDERED: SALMETEROL/FLUTICASONE 250/50 INHA INH SCH (21:00)
[2017-04-11] MEDS ORDERED: METOPROLOL (XL) 25 MG TAB PO SCH (09:00)
== END 2017-04-10 15:30 | disposition home or self-care (01) | DRG 313 ==
LOC: E/R 17:54 → TEL 20:08
PROVIDERS: ADMIT Internal Medicine; ATTEND Internal Medicine
DX: R07.9 Chest pain, unspecified (principal); I25.10 Atherosclerotic heart disease of native coronary artery without angina pectoris; E11.40 Type 2 diabetes mellitus with diabetic neuropathy, unspecified; R06.00 Dyspnea, unspecified; E11.9 Type 2 diabetes mellitus without complications; R06.02 Shortness of breath; I10 Essential (primary) hypertension; Z95.1 Presence of aortocoronary bypass graft; E78.5 Hyperlipidemia, unspecified; Z87.891 Personal history of nicotine dependence; F12.10 Cannabis abuse, uncomplicated
CPT/HCPCS: 36415; 71010; 71275; 80048; 80053; 80061; 82550; 82553; 82962; 83036; 83735; 83880; 84439; 84443; 84484; 85025; 85610; 85730; 93005; 93306; 94664; J1650; J1815; J7030; Q9967

== ENCOUNTER 2017-05-09 16:10 | Inpatient (IN) | payer OTHER ==
[~2017-05-09] VITALS: Ht 167.6 cm; Wt 91.2 kg
[~2017-05-09 16:10] MED LIST changes: +ADV25050 INH; -ASPI325T32 PO; +GABA100C14 PO; +GLIM4TAB PO; +INSU300I SQ; +LINA5TAB PO; +LOSA50TA6 PO; +MELO-216 PO; +METO-335 PO; -METO25TA4 PO; -OXYC-183 PO; +PYRI50CA PO; -SIMV40TA3 PO; +TIOT18CA INH; -VALS160T20 PO; -glipizide; -qpap
[2017-05-09] MEDS ORDERED: SOD CHLORIDE 0.9% 500 ML IV STA (16:21)
[2017-05-09 16:46] LABS: BASOPHILS % 0.3 % (0.0-2.0); EOSINOPHILS # 0.1 10^3/ul (0.0-0.5); EOSINOPHILS % 0.6 % (0.0-7.0); HEMOGLOBIN 14.4 g/dl (14.0-18.0); LYMPHOCYTES # 1.3 10^3/ul (0.8-2.9); LYMPHOCYTES % 10.2 % (15.0-51.0); MEAN CORPUSCULAR HEMOGLOBIN 30.4 pg (29.0-33.0); MEAN CORPUSCULAR HGB CONC 34.3 g/dl (32.0-37.0); MEAN CORPUSCULAR VOLUME 88.8 fl (82.0-101.0); MEAN PLATELET VOLUME 10.9 fl (7.4-10.4); MONOCYTE # 0.6 10^3/ul (0.3-0.9); MONOCYTES % 4.7 % (0.0-11.0); NEUTROPHIL # 10.6 10^3/ul (1.6-7.5); NEUTROPHILS % 83.8 % (39.0-77.0); PLATELET COUNT 244 10^3/UL (140-415); RED BLOOD COUNT 4.73 10^6/ul (4.70-6.10); RED CELL DISTRIBUTION WIDTH 12.7 % (11.5-14.5); WHITE BLOOD COUNT 12.7 10^3/ul (4.8-10.8)
--- NOTE | 2017-05-09 17:00 | RADRPT ---
PROCEDURE: XR Chest. CLINICAL INDICATION: Chest Pain. TECHNIQUE: AP view of the chest were obtained. COMPARISON: February 14, 2009 FINDINGS: Cardiomegaly and calcified atherosclerosis of the aortic arch. The patient is status post median celina rnotomy. There is patchy atelectasis at the right lung base. Trace right-sided effusion. No evidenc e of pneumothorax. The osseous structures and soft tissues are grossly unremarkable. IMPRESSION: Trace right-sided effusion and bibasilar atelectasis. Cardiomegaly, calcified atherosclerosis of the aortic arch, status post median sternotomy. Obscuration by overlying ECG leads. RPTAT: QQ .Breezy Jacob MD, MD Date Time Electronically viewed and signed by .Breezy Jacob MD, on 05/09/2017 17:00 .G/
[2017-05-09 17:07] LABS: ANION GAP 18 (8-16); BLOOD UREA NITROGEN 32 mg/dl (7-20); CALCIUM 10.2 mg/dl (8.4-10.2); CARBON DIOXIDE 26 mmol/L (21-31); CHLORIDE 100 mmol/L (97-110); CREATININE 2.34 mg/dl (0.61-1.24); GLUCOSE 326 mg/dl (70-220); POTASSIUM 5.6 mmol/L (3.5-5.1); SODIUM 138 mmol/L (135-144)
[2017-05-09] MEDS ORDERED: METO-335 PO (17:10)
[2017-05-09 17:19] LABS: TROPONIN-I < 0.012 ng/ml (0.00-0.12)
--- NOTE | 2017-05-09 18:09 | ERD ---
ER Documentation Chief Complaint Chief Complaint hypotension HPI This is a 76-year-old male with a history of hypertension high cholesterol CAD CABG, he is here for low blood pressure. The patient states that today he is feeling some dizziness when he stands up and walks some generalized weakness. No shortness of breath or chest pain. He is taking a beta-margaret and losartan. Is not having any recent cough fever dysuria abdominal pain. ROS All systems reviewed and are negative except as per history of present illness. Medications Home Meds Active Scripts Tiotropium [place]* (Spiriva*) 18 Mcg Cap.w.dev, 1 INH INH DAILY, #1 INHALER 3 Refills Prov:BEBETO MTZ F 04/10/17 Reported Medications Metoprolol Succinate* (Toprol XL*) 25 Mg Tab.sr.24h, 25 MG PO DAILY, #30 TAB 05/09/17 Pyridoxine Hcl* (Vitamin B-6*) 50 Mg Capsule, 50 MG PO DAILY, CAP 04/09/17 Insulin Glargine,Hum.rec.anlog ([place]) 300 Unit/1 Ml Insuln.pen, 20 UNIT SQ DAILY 04/09/17 Linagliptin (TRADJENTA) 5 Mg Tablet, 5 MG PO DAILY, TAB 04/09/17 Meloxicam* (Meloxicam*) 7.5 Mg Tablet, 7.5 MG PO DAILY, #30 TAB 04/09/17 Glimepiride* (Glimepiride*) 4 Mg Tablet, 4 MG PO WITH BREAKFAST, TAB 04/09/17 Losartan Potassium* (Losartan Potassium*) 50 Mg Tablet, 50 MG PO DAILY, TAB 04/09/17 Gabapentin* (Gabapentin*) 100 Mg Capsule, 100 MG PO BID, #90 CAP 04/09/17 Aspirin* (Aspirin* EC) 81 Mg Tablet.dr, 81 MG PO DAILY 06/30/11 Discontinued Scripts Metoprolol Succinate* (Toprol XL*) 25 Mg Tab.sr.24h, 12.5 MG PO DAILY for 30 Days, 3 Refills 1/2 tab (12.5 mg) daily Prov:BEBETO MTZ 04/10/17 Salmeterol Xinaf/Fluticasone* (Advair*) 250-50 Diskus Inhaler, 1 INH INH BID, # 1 INHALER 3 Refills Prov:BEBETO MTZ 04/10/17 Allergies Allergies: Coded Allergies: No Known Allergy (Verified , 05/09/17) PMhx/Soc History of Surgery: Yes (S/P CABG) Anesthesia Reaction: No Hx Neurological Disorder: No Hx Respiratory Disorders: Yes Hx Cardiac Disorders: Yes (HTN) Hx Psychiatric Problems: No Hx Alcohol Use: No Hx Substance Use: No Hx Tobacco Use: Yes Smoking Status: Never smoker FmHx Family History: No coronary disease Physical Exam Vitals Vital Signs Date Time Temp Pulse Resp B/P Pulse Ox O2 Delivery O2 Flow Rate FiO2 05/09/17 16:13 97.5 59 12 114/70 98 Physical Exam Const: Well-developed, well-nourished Head: Atraumatic, normocephalic Eyes: Normal Conjunctiva, PERRLA, EOMI, normal sclera, no nystagmus ENT: Normal External Ears, Nose and Mouth, moist mucus membranes. Neck: Full range of motion. No meningismus, no lymphadenopathy. Resp: Clear to auscultation bilaterally, no wheezing, rhonchi, rales Cardio: Regular rate and rhythm, no murmurs, S1 S2 present Abd: Soft, non tender x 4, non distended. Normal bowel sounds, no guarding or rebound, no pulsitile abdominal masses or bruits Skin: No petechiae or rashes, no ecchymosis , no maculopapular rash Back: No midline or flank tenderness Ext: No cyanosis, or edema, FROM x 4, normal inspection, neurovascularly intact x 4 Neur: Awake and alert, STR 5/5 x 4, sensation intact x 4, no focal findings, cerebellum intact Psych: Normal Mood and Affect Result Diagram: 05/09/17 1625 05/09/17 1625 Results 24 hrs Laboratory Tests Test 05/09/17 16:25 White Blood Count 12.710^3/ul Red Blood Count 4.7310^6/ul Hemoglobin 14.4g/dl Hematocrit 42.0% Mean Corpuscular Volume 88.8fl Mean Corpuscular Hemoglobin 30.4pg Mean Corpuscular Hemoglobin Concent 34.3g/dl Red Cell Distribution Width 12.7% Platelet Count 38349^3/UL Mean Platelet Volume 10.9fl Neutrophils % 83.8% Lymphocytes % 10.2% Monocytes % 4.7% Eosinophils % 0.6% Basophils % 0.3% Nucleated Red Blood Cells % 0.0/100WBC Neutrophils # 10.610^3/ul Lymphocytes # 1.310^3/ul Monocytes # 0.610^3/ul Eosinophils # 0.110^3/ul Basophils # 0.010^3/ul Nucleated Red Blood Cells # 0.010^3/ul Sodium Level 138mmol/L Potassium Level 5.6mmol/L Chloride Level 100mmol/L Carbon Dioxide Level 26mmol/L Anion Gap 18 Blood Urea Nitrogen 32mg/dl Creatinine 2.34mg/dl Glucose Level 326mg/dl Calcium Level 10.2mg/dl Troponin I < 0.012ng/ml Current Medications Medications (Trade) Dose Ordered Sig/Armin Route PRN Reason Start Time Stop Time Status Last Admin Dose Admin Sodium Chloride (NS) 500 ml @ 500 mls/hr Q1H STAT IV 05/09/17 16:21 05/09/17 17:20 DC 05/09/17 16:21 Procedures/MDM EKG: Rate/Rhythm: Normal Sinus Rhythm,NL intervals QRS, ST, QT: NORMAL UT, QRS, QT] Impression: NORMAL EKG PROCEDURE: XR Chest. CLINICAL INDICATION: Chest Pain. TECHNIQUE: AP view of the chest were obtained. COMPARISON: February 14, 2009 FINDINGS: Cardiomegaly and calcified atherosclerosis of the aortic arch. The patient is status post median sternotomy. There is patchy atelectasis at the right lung base. Trace right-sided effusion. No evidence of pneumothorax. The osseous structures and soft tissues are grossly unremarkable. IMPRESSION: Trace right-sided effusion and bibasilar atelectasis. Cardiomegaly, calcified atherosclerosis of the aortic arch, status post median sternotomy. Obscuration by overlying ECG leads. RPTAT: QQ .Breezy Jacob MD, MD Date Time Electronically viewed and signed by .Breezy Jacob MD, on 05/09/2017 17:00 .G/ CC: ALICE GARCÍA DO Patient's creatinine was 1.14 on April 09. Creatinine is worse today with elevated BUN, elevated potassium at 5.6. He likely has a combination of some volume depletion on top of being overmedicated as his heart rates running 58-61 with low blood pressure. This is likely due to beta-margaret losartan combination with volume depletion. We will admit him for gentle fluid resuscitation and holding his blood pressure medications Departure Diagnosis: Primary Impression: Hypotension Hypotension type: unspecified hypotension type Qualified Code: I95.9 - Hypotension, unspecified hypotension type Additional Impression: Renal insufficiency Condition: Stable ALICE GARCÍA DO May 09, 2017 18:09
[2017-05-09] MEDS ORDERED: SOD CHLORIDE 0.9% 1,000 ML IV STA (19:53)
[2017-05-09] MEDS ORDERED: SOD CHLORIDE 0.9% 1,000 ML IV SCH (20:32)
[2017-05-09] MEDS ORDERED: ACETAMINOPHEN 325 MG TAB PO PRN ×2 (21:00→22:30)
[2017-05-09] MEDS ORDERED: ONDANSETRON 4 MG INJ IV PRN ×2 (21:00→22:30)
[2017-05-09 21:22] VITALS: TEMP 97.5
[2017-05-09 21:48] VITALS: PULSE 62
[2017-05-09 22:09] VITALS: BP 123/73; PULSE 64; RESP 17
[2017-05-09 22:15] VITALS: BP 123/73; RESP 18
[2017-05-09] MEDS ORDERED: NA POLYST SULFON 15 GM/60 ML BTL PO ONE (22:30)
[2017-05-09] MEDS: SOD CHLORIDE 0.9% 1,000 ML IV SCH (23:01)
[2017-05-09 23:02] VITALS: Ht 167.6 cm; Wt 91.2 kg
[2017-05-10] VITALS (7 sets, daily range): BP systolic 117–145; BP diastolic 68–77; PULSE 58–69; RESP 18–19
--- NOTE | 2017-05-10 00:47 | QN ---
Documentation Comment H&P dict a/p 1. gi: epigastric discopmfort with SOB, ?gall stone dx, ?gastritis, patient does NOT feel this is similar to prior cardiac pain 2. renal> acute renal failure, unclear etiology, check renal us, check FeNa 3. DM 4. transisent hypotension at [facility],MANI Waite MD May 10, 2017 00:47
[2017-05-10] MEDS ORDERED: GLUCOSE GEL 15 GRAM TUBE PO PRN ×2 (01:00)
[2017-05-10] MEDS ORDERED: DEXTROSE 50% 50 ML SYRINGE IV PRN ×2 (01:00)
[2017-05-10] MEDS ORDERED: GLUCAGON 1 MG INJ IM PRN (01:00)
[2017-05-10] MEDS ORDERED: GLUCOSE GEL 15 GRAM TUBE BUCCAL PRN (01:00)
[2017-05-10] MEDS ORDERED: ACCU-CHEK XX SCH (02:00)
--- NOTE | 2017-05-10 05:06 | HP ---
DATE OF ADMISSION: 05/09/2017 CHIEF COMPLAINT: Hypotension. HISTORY OF PRESENTING ILLNESS: The patient is referred to the emergency room at [facility] by the [facility] after being found to be hypotensive at the [facility]. He had been complaining of s ome dizziness, especially when standing, was at the [facility] for a regularly scheduled appointment when he was noted to be hypotensive and referred to the emergency room. By the time of his arrival here hi s blood pressure was quite normal. The patient does state that he has been recently having coughing and sputum production, but no fevers. This has been improving over the last week or 2. The patient states that he went to the [facility] originally because he has been having paroxysms o f abdominal bloating and discomfort, especially in the epigastric region which may be accompanied by shortness of breath. On at least 1 occasion he did have some nausea that came along with this, but he denies any vomiting, denies diarrhea, constipation. PAST MEDICAL HISTORY: Significant for: 1. Coronary artery disease, status post coronary artery bypass grafting. 2. Diabetes. 3. Hypertension. MEDICATIONS: As outpatient include: 1. Spiriva 1 puff daily. 2. Cozaar 50 mg daily. 3. Toprol 25 mg daily. 4. Aspirin 81 mg daily. 5. Neurontin 100 mg b.i.d. 6. Mobic. 7. Amaryl 4 mg daily. 8. Lantus 20 units daily. 9. Tradjenta 5 mg daily. 10. Vitamin B6. ALLERGIES: NO KNOWN DRUG ALLERGIES. SOCIAL HISTORY: The patient lives at home in [place] by himself. Has the assistance of in-home [employer] services approximately 20 hours a week. They assist with cooking and house cleaning prima rily, some assistance with dressing. The patient denies tobacco, alcohol, illicit drug use. FAMILY HISTORY: Noncontributory. REVIEW OF SYSTEMS: Five systems reviewed and found not to be revealing. PHYSICAL EXAMINATION: VITAL SIGNS: Blood pressure 123/68, pulse rate 60, respirations 19, temperature is 97.7. GENERAL: Pleasant man in no acute distress. Alert and oriented x3. HEENT: Normocephalic, atraumatic without evident scleral icterus, perioral cyanosis. Mucous membra geoffrey are moist. NECK: Soft and supple without masses. No evidence of jugular venous distention or carotid bruits. CHEST: Clear to auscultation and percussion bilaterally. HEART: Regular rate and rhythm, S1, S2. No added sounds. ABDOMEN: Soft, distended with obesity, no palpable hepatosplenomegaly. EXTREMITIES: Without clubbing, cyanosis or edema. SKIN: Without rashes. NEUROLOGIC: Grossly intact. LABORATORY STUDIES: Reveal a hemoglobin of 14.4 g/dL, white count 12,700, platelets of 244,000. So dium 138, potassium 5.6, chloride 100, bicarbonate 26, BUN 32, creatinine 2.34, glucose 326. Tropon in is negative. It should be noted that patient was admitted to this hospital on 04/09. At that ti me, his creatinine was 1.37. His discharge value was 1.14. ASSESSMENT AND PLAN: 1. Gastrointestinal: The patient with epigastric discomfort with associated shortness of breath, u nclear etiology. Patient does not feel this is similar to prior cardiac pain. Consider gallstone d isease. Consider also gastritis. We will begin empiric Protonix. Check abdominal ultrasound. 2. Renal: Patient with acute renal failure. Baseline creatinine is likely around 1.2 to 1.3, curr ent value unclear. Check fractional excretion of sodium as well as a renal ultrasound. Give IV flu ids, check urine specimen. 3. Prophylaxis with Lovenox. Dictated By: MANI MARVIN MD RER/NTS Conf#: [id number] DID#: [id number]
[2017-05-10] MEDS ORDERED: PANTOPRAZOLE (EC) 40 MG TAB PO SCH (06:00)
[2017-05-10 06:43] LABS: BASOPHILS % 0.6 % (0.0-2.0); EOSINOPHILS # 0.1 10^3/ul (0.0-0.5); EOSINOPHILS % 1.9 % (0.0-7.0); HEMATOCRIT 37.7 % (42.0-52.0); HEMOGLOBIN 12.9 g/dl (14.0-18.0); LYMPHOCYTES # 2.1 10^3/ul (0.8-2.9); LYMPHOCYTES % 28.8 % (15.0-51.0); MEAN CORPUSCULAR HEMOGLOBIN 30.7 pg (29.0-33.0); MEAN CORPUSCULAR HGB CONC 34.2 g/dl (32.0-37.0); MEAN CORPUSCULAR VOLUME 89.8 fl (82.0-101.0); MEAN PLATELET VOLUME 9.4 fl (7.4-10.4); MONOCYTE # 0.5 10^3/ul (0.3-0.9); MONOCYTES % 6.5 % (0.0-11.0); NEUTROPHIL # 4.5 10^3/ul (1.6-7.5); NEUTROPHILS % 62.1 % (39.0-77.0); PLATELET COUNT 174 10^3/UL (140-415); WHITE BLOOD COUNT 7.2 10^3/ul (4.8-10.8)
[2017-05-10 07:17] LABS: ALANINE AMINOTRANSFERASE 86 IU/L (13-69); ALBUMIN 3.9 g/dl (3.3-4.9); ALBUMIN/GLOBULIN RATIO 1.02; ALKALINE PHOSPHATASE 85 IU/L (42-121); ANION GAP 18 (8-16); ASPARTATE AMINO TRANSFERASE 63 IU/L (15-46); BILIRUBIN,INDIRECT 0.4 mg/dl (0-1.1); BILIRUBIN,TOTAL 0.4 mg/dl (0.2-1.3); BLOOD UREA NITROGEN 30 mg/dl (7-20); CALCIUM 9.4 mg/dl (8.4-10.2); CARBON DIOXIDE 23 mmol/L (21-31); CHLORIDE 106 mmol/L (97-110); CREATININE 1.38 mg/dl (0.61-1.24); GLUCOSE 161 mg/dl (70-220); SODIUM 143 mmol/L (135-144); TOTAL PROTEIN 7.7 g/dl (6.1-8.1)
[2017-05-10 07:38] LABS: TROPONIN-I < 0.012 ng/ml (0.00-0.12)
[2017-05-10] MEDS: SOD CHLORIDE 0.9% 1,000 ML IV SCH (08:42)
[2017-05-10] MEDS: INSULIN ASPART [NOVOLOG] 3 ML PEN SC SCH ×2 (08:48→12:03)
[2017-05-10] MEDS ORDERED: PYRIDOXINE 50 MG TAB PO SCH (09:00)
[2017-05-10] MEDS ORDERED: GABAPENTIN 100 MG CAP PO SCH (09:00)
[2017-05-10] MEDS ORDERED: ASPIRIN (EC) 81 MG TAB PO SCH (09:00)
[2017-05-10] MEDS ORDERED: ENOXAPARIN 30 MG/0.3 ML SYG SC SCH (09:00)
--- NOTE | 2017-05-10 10:10 | RADRPT ---
PROCEDURE: Complete abdominal ultrasound. CLINICAL INDICATION: Abdominal pain TECHNIQUE: Ma scale and color doppler ultrasound images of the complete abdomen. COMPARISON: None FINDINGS: Pancreas: Visualized portions appear of normal echogenicity without focal lesions. Liver: Morphology:Normal in size. Contour:Normal. Echogenicity: Mildly increased Focal lesions:None. Main portal vein: Patent with hepatopetal flow. Biliary System: Gallbladder wall: Normal thickness. Gallstones: None. Intrahepatic bile ducts: Normal caliber. Common bile duct diameter (mm): 4.4 Kidneys: Right length (cm) : 10.4 Left length (cm) : 9.8 Right cortical thickness: Normal. Left cortical thickness: Normal. Echogenicity: Normal bilaterally. Hydronephrosis: None. Renal calculi: None. Focal lesions: None. Spleen: Size: Normal. Focal lesions: None. Free fluid/ascites: None. Abdominal aorta: Normal caliber of the visualized segments. Other findings: None. IMPRESSION: Normal gallbladder without gallstones. Mildly increased echogenicity of the liver suggestive of hepatic steatosis. RPTAT: AADD .Tenzin Gutierrez MD, MD Date Time Electronically viewed and signed by .Tenzin Gutierrez MD, MD on 05/10/2017 10:10 .B/
[2017-05-10] MEDS ORDERED: METOPROLOL (XL) 25 MG TAB PO SCH (11:00)
--- NOTE | 2017-05-10 11:03 | PN ---
Date/Time of Note Date/Time of Note DATE: 05/10/17 TIME: 10:50 Assessment/Plan VTE Prophylaxis VTE Prophylaxis Intervention: LMWH Lines/Catheters IV [facility] Peripheral IV Assessment/Plan Assessment/Plan 76-year-old male with: 1. Acute kidney injury, hypotensive episode, given his symptoms patient likely had a hypovolemic/orthostatic static hypotension episode with prerenal azotemia. All his symptoms are resolved currently. He has been on IV fluids overnight and his renal function is much improved this morning almost close to baseline. I will decrease his losartan to 25 mg nightly, he can continue his Toprol-XL 12.5 mg po daily as tolerated, he can resume losartan tomorrow at home. Discharge home today with outpatient follow-up with his primary care physician within 1 week. 2. Chronic mild dyspnea, saturation wnl and in the upper 90s on room air, symptoms not related to exertion but describing orthopnea. 2D echocardiogram done last month was also within normal. Cardiac enzymes negative 3, EKG and telemetry reading within normal. Repeat CTA chest 1 month ago with no pulmonary embolus or dissection. Patient has seen pulmonary a few weeks ago and is due for follow-up in June. She also has follow-ups with cardiology as an outpatient. 3. Diabetes mellitus: A1c of 8.5, 1 month ago., continue current medications. Diabetic diet. 4. Diabetic neuropathy: Continue gabapentin. 5. Hypertension: With episodes of hypotension yesterday, resolved today, systolic blood pressures in the 140s. Patient to continue his lower dose of Toprol-XL upon discharge and also decrease his losartan to 25 mg nightly. He can follow-up with his primary care physician for any further adjustment of his medications. 6. Reported urinary incontinence since prostate surgery, patient is self treating with medical, edible marijuana per his report Prophylaxis: Pepcid for GI prophylaxis, Lovenox for DVT prophylaxis Disposition: Discharge home today, follow-up with cardiology and pulmonary. Follow-up with PCP within 1 week. Subjective 24 Hr Interval Summary Free Text/Dictation Patient hypotensive episode resolved, his systolic blood pressures in the 140s this morning, renal function much improved. His Toprol-XL was already decreased to 12.5 mg daily on his last admission a month ago, will decrease his losartan this time 25 mg p.o. nightly. His renal function is much improved today. Exam/Review of Systems Vital Signs Vitals Vital Signs Date Time Temp Pulse Resp B/P Pulse Ox O2 Delivery O2 Flow Rate FiO2 05/10/17 08:16 60 05/10/17 08:01 98.0 18 145/77 96 05/10/17 07:56 Room Air Intake and Output 05/09/17 05/09/17 05/10/17 15:00 23:00 07:00 Intake Total 600 ml Balance 600 ml Exam Constitutional: alert, oriented, well developed Respiratory: clear to auscultation, normal air movement Cardiovascular: nl pulses, regular rate and rhythm Gastrointestinal: non-tender, soft Musculoskeletal: nl extremities to inspection, nl gait and stance Extremities: normal pulses, other (No edema, clubbing or cyanosis) Neurological: OIL FIELD PUMPER II-XII intact, nl mental status, nl speech, nl strength Results Result Diagram: 05/10/1727 05/10/1727 Results 24 hrs Laboratory Tests Test 05/09/17 16:25 05/10/17 01:45 05/10/17 06:27 05/10/17 08:41 White Blood Count 12.7 #H 7.2 # Red Blood Count 4.73 4.20 L Hemoglobin 14.4 12.9 L Hematocrit 42.0 37.7 L Mean Corpuscular Volume 88.8 89.8 Mean Corpuscular Hemoglobin 30.4 30.7 Mean Corpuscular Hemoglobin Concent 34.3 34.2 Red Cell Distribution Width 12.7 13.0 Platelet Count 244 # 174 # Mean Platelet Volume 10.9 H 9.4 Neutrophils % 83.8 H 62.1 Lymphocytes % 10.2 L 28.8 Monocytes % 4.7 6.5 Eosinophils % 0.6 1.9 Basophils % 0.3 0.6 Nucleated Red Blood Cells % 0.0 0.0 Neutrophils # 10.6 H 4.5 Lymphocytes # 1.3 2.1 Monocytes # 0.6 0.5 Eosinophils # 0.1 0.1 Basophils # 0.0 0.0 Nucleated Red Blood Cells # 0.0 0.0 Sodium Level 138 143 Potassium Level 5.6 H 4.0 Chloride Level 100 106 Carbon Dioxide Level 26 23 Anion Gap 18 H 18 H Blood Urea Nitrogen 32 H 30 H Creatinine 2.34 H 1.38 H Glucose Level 326 H 161 # Calcium Level 10.2 9.4 Troponin I < 0.012 < 0.012 Bedside Glucose 177 170 Total Bilirubin 0.4 Direct Bilirubin 0.00 Indirect Bilirubin 0.4 Aspartate Amino Transf (AST/SGOT) 63 H Alanine Aminotransferase (ALT/SGPT) 86 H Alkaline Phosphatase 85 Total Protein 7.7 Albumin 3.9 Globulin 3.80 H Albumin/Globulin Ratio 1.02 Medications Medications Current Medications Sodium Chloride (NS) 1,000 ml @ 100 mls/hr Q10H IV Last administered on 08:42; Admin Dose 100 MLS/HR; Start 05/09/17 at 22:30 Acetaminophen (Tylenol Tab) 650 mg Q4H PRN PO PAIN AND OR ELEVATED TEMP Last administered on 05/10/17 06:28; Admin Dose 650 MG; Start 05/09/17 at 22:30 Ondansetron HCl (Zofran Inj) 4 mg Q4H PRN IV NAUSEA AND/OR VOMITING; Start at 22:30 Aspirin (Halfprin) 81 mg DAILY PO Last administered on 05/10/17 10:17; Admin Dose 81 MG; Start 05/10/17 at 09:00 Gabapentin (Neurontin) 100 mg BID PO Last administered on 05/10/17 10:17; Admin Dose 100 MG; Start 05/10/17 at 09:00 Pyridoxine HCl (Vitamin B6) 50 mg DAILY PO Last administered on 05/10/17 10:17 ; Admin Dose 50 MG; Start 05/10/17 at 09:00 Insulin Glargine (Lantus) 12 unit DAILY@20 SC ; Start 05/10/17 at 20:00 Diagnostic Test (Pha) (Accu-Chek) 1 ea 02 XX Last administered on 05/10/17 01: 47; Admin Dose 1 EA; Start 05/10/17 at 02:00 Pantoprazole (Protonix Tab) 40 mg DAILY@06 PO Last administered on 05/10/17 05 :18; Admin Dose 40 MG; Start 05/10/17 at 06:00 Hydralazine HCl (Apresoline) 25 mg Q6H PRN PO sbp>160; Start 05/10/17 at 01:00 Enoxaparin Sodium (Lovenox) 30 mg DAILY SC Last administered on 12/1/17at 10:29 ; Admin Dose 30 MG; Start 05/10/17 at 09:00 Miscellaneous Information 1 ea NOTE XX ; Start 05/10/17 at 01:00 Glucose (Glutose) 15 gm Q15M PRN PO DECREASED GLUCOSE; Start 05/10/17 at 01:00 Glucose (Glutose) 22.5 gm Q15M PRN PO DECREASED GLUCOSE; Start 05/10/17 at 01: 00 Dextrose (D50w Syringe) 25 ml Q15M PRN IV DECREASED GLUCOSE; Start 05/10/17 at 01:00 Dextrose (D50w Syringe) 50 ml Q15M PRN IV DECREASED GLUCOSE; Start 05/10/17 at 01:00 Glucagon (Glucagen) 1 mg Q15M PRN IM DECREASED GLUCOSE; Start 05/10/17 at 01:00 Glucose (Glutose) 15 gm Q15M PRN BUCCAL DECREASED GLUCOSE; Start 05/10/17 at 01 :00 BEBETO MTZ May 10, 2017 11:02
--- NOTE | 2017-05-10 11:08 | PDOCDIS ---
Discharge Instructions CONDITION Patient Condition: Stable HOME CARE INSTRUCTIONS: Diet Instructions: 2gm NaSpecial Diet: ADA diet ACTIVITY: Activity Restrictions: Slowly Increase Activity FOLLOW UP/APPOINTMENTS Follow-up Plan Home health RN visit Follow-up with primary care physician within 1 week regarding blood pressure medication adjustments and monitoring of renal function. Follow-up with cardiology as outpatient within 2-4 weeks Patient already scheduled to follow-up with pulmonary as an outpatient in June 2017 BEBETO MTZ May 10, 2017 11:08
[2017-05-10] MEDS ORDERED: METO-335 PO (11:10)
[2017-05-10] MEDS ORDERED: LOSA25TA2 PO (11:10)
[2017-05-10 16:21] LABS: ADD UMIC NO; UR ASCORBIC ACID NEGATIVE (NEGATIVE); UR BILIRUBIN (Dip) NEGATIVE (NEGATIVE); UR BLOOD (Dip) NEGATIVE (NEGATIVE); UR CLARITY CLEAR (CLEAR); UR COLOR YELLOW (YELLOW); UR GLUCOSE (Dip) NEGATIVE (NEGATIVE); UR KETONES (Dip) NEGATIVE (NEGATIVE); UR LEUKOCYTE ESTERASE (Dip) NEGATIVE Leu/ul (NEGATIVE); UR NITRITE (Dip) NEGATIVE (NEGATIVE); UR SPECIFIC GRAVITY (Dip) 1.009 (1.003-1.030); UR TOTAL PROTEIN (Dip) NEGATIVE (NEGATIVE); UR UROBILINOGEN (Dip) NEGATIVE (NEGATIVE)
[2017-05-10] MEDS ORDERED: INSULIN GLARGINE [LANtus] 3 ML PEN SC SCH (20:00)
[2017-05-10] MEDS ORDERED: LOSARTAN 25 MG TAB PO SCH (21:00)
--- NOTE | 2017-05-13 16:12 | DS ---
Date/Time of Note Date/Time of Note DATE: 05/13/17 TIME: 16:02 Discharge Summary Admission/Discharge Info Admit Date/Time May 09, 2017 at 20:33 Discharge Date/Time May 10, 2017 at 13:25 Discharge Diagnosis 1. Acute kidney injury 2. Hypotensive episode, given his symptoms patient likely had a hypovolemic/ orthostatic static hypotension episode with prerenal azotemia. 3. Chronic mild dyspnea, no hypoxemia. 4. Diabetes mellitus. 5. Diabetic neuropathy 6. Hypertension 7. Reported urinary incontinence since prostate surgery Patient Condition: Stable Consults None Procedures None Hx of Present Illness The patient is referred to the emergency room at [facility] by the [facility] after being found to be hypotensive at the [facility]. He had been complaining of some dizziness, especially when standing, was at the [facility] for a regularly scheduled appointment when he was noted to be hypotensive and referred to the emergency room. By the time of his arrival here his blood pressure was quite normal. The patient does state that he has been recently having coughing and sputum production, but no fevers. This has been improving over the last week or 2. The patient states that he went to the [facility] originally because he has been having paroxysms of abdominal bloating and discomfort, especially in the epigastric region which may be accompanied by shortness of breath. On at least 1 occasion he did have some nausea that came along with this, but he denies any vomiting, denies diarrhea, constipation. Hospital Course Patient was started on IV fluids, within 24 hours his renal function was much improved with creatinine almost back to baseline. Blood pressure remained stable with his blood pressure medication held. I reviewed his blood pressure medications, his Toprol-XL was already decreased to 12.5 mg daily on his previous admission due to episodes of bradycardia. Losartan was therefore decreased to 25 mg p.o. at bedtime given his recent hypotensive episode. Patient will be following up with his nutrition internship and with his primary care physician at the [facility]. He remains hemodynamically stable by the time of discharge. He was sent home with his caregiver. Home Meds Active Scripts Metoprolol Succinate* (Toprol XL*) 25 Mg Tab.sr.24h, 12.5 MG PO DAILY for 30 Days, 3 Refills 1/2 tab po daily Prov:BEBETO MTZ 05/10/17 Losartan Potassium* (Cozaar*) 25 Mg Tablet, 25 MG PO QHS for 30 Days, TAB 3 Refills Prov:BEBETO MTZ 05/10/17 Tiotropium Lyman* (Spiriva*) 18 Mcg Cap.w.dev, 1 INH INH DAILY, #1 INHALER 3 Refills Prov:BEBETO MTZ F 04/10/17 Reported Medications Metoprolol Succinate* (Toprol XL*) 25 Mg Tab.sr.24h, 25 MG PO DAILY, #30 TAB 05/09/17 Pyridoxine Hcl* (Vitamin B-6*) 50 Mg Capsule, 50 MG PO DAILY, CAP 04/09/17 Insulin Glargine,Hum.rec.anlog ([place]) 300 Unit/1 Ml Insuln.pen, 20 UNIT SQ DAILY 04/09/17 Linagliptin (TRADJENTA) 5 Mg Tablet, 5 MG PO DAILY, TAB 04/09/17 Meloxicam* (Meloxicam*) 7.5 Mg Tablet, 7.5 MG PO DAILY, #30 TAB 04/09/17 Glimepiride* (Glimepiride*) 4 Mg Tablet, 4 MG PO WITH BREAKFAST, TAB 04/09/17 Gabapentin* (Gabapentin*) 100 Mg Capsule, 100 MG PO BID, #90 CAP 04/09/17 Aspirin* (Aspirin* EC) 81 Mg Tablet.dr, 81 MG PO DAILY 06/30/11 Discontinued Reported Medications Losartan Potassium* (Losartan Potassium*) 50 Mg Tablet, 50 MG PO DAILY, TAB 04/09/17 Discontinued Scripts Metoprolol Succinate* (Toprol XL*) 25 Mg Tab.sr.24h, 12.5 MG PO DAILY for 30 Days, 3 Refills 1/2 tab (12.5 mg) daily Prov:BEBETO MTZ 04/10/17 Salmeterol Xinaf/Fluticasone* (Advair*) 250-50 Diskus Inhaler, 1 INH INH BID, # 1 INHALER 3 Refills Prov:BEBETO MTZ 04/10/17 Follow-up Plan Home health RN visit Follow-up with primary care physician within 1 week regarding blood pressure medication adjustments and monitoring of renal function. Follow-up with cardiology as outpatient within 2-4 weeks Patient already scheduled to follow-up with pulmonary as an outpatient in June 2017 Primary Care Provider Sophie Simpson MD Time spent on discharge: > 30 minutes BEBETO MTZ May 13, 2017 16:12
== END 2017-05-10 13:25 | disposition home health service (06) | DRG 684 ==
LOC: E/R 16:10 → TEL 20:33
PROVIDERS: ADMIT Legal Medicine; ATTEND Legal Medicine
DX: N17.9 Acute kidney failure, unspecified (principal); I95.9 Hypotension, unspecified; E11.40 Type 2 diabetes mellitus with diabetic neuropathy, unspecified; I25.10 Atherosclerotic heart disease of native coronary artery without angina pectoris; Z95.1 Presence of aortocoronary bypass graft; R32 Unspecified urinary incontinence
CPT/HCPCS: 36415; 71010; 76700; 80048; 80053; 81003; 82962; 84155; 84300; 84484; 85025; 87081; 93005; J1650; J1815; J7030; J7040